=== PATIENT | male | born 1990 | race Caucasian/White ===

== ENCOUNTER 2016-05-08 08:01 | Emergency (ER) | payer MEDICAID ==
[~2016-05-08] VITALS: Ht 170.2 cm; Wt 68.2 kg
[2016-05-08 08:02] VITALS: BP 100/61
[2016-05-08] MEDS ORDERED: DEXAMETHASONE 4 MG TABLET ONE (08:43)
[2016-05-08] MEDS ORDERED: KETOROLAC 30 MG/1 ML ONE (08:43)
[2016-05-08] MEDS ORDERED: HYDR-3240 PO (08:51)
[2016-05-08] MEDS ORDERED: DEXAMETHASONE 4 MG TABLET PO ONE (09:00)
[2016-05-08] MEDS ORDERED: KETOROLAC 30 MG/1 ML IM ONE (09:00)
== END 2016-05-08 10:34 ==
LOC: ED 09:09
DX: R07.0 Pain in throat (principal); G43.909 Migraine, unspecified, not intractable, without status migrainosus; Z88.5 Allergy status to narcotic agent; Z87.891 Personal history of nicotine dependence
CPT/HCPCS: 87081; 87880; 96372; 99284; J1885

== ENCOUNTER 2017-05-08 09:33 | Emergency (ER) | payer MEDICAID ==
[~2017-05-08] VITALS: Ht 170.2 cm; Wt 71.1 kg
[~2017-05-08 09:33] MED LIST: HYDR-3240 PO
[2017-05-08 09:36] VITALS: BP 117/73
== END 2017-05-08 11:51 | disposition home or self-care (01) ==
LOC: ED 10:11
DX: J20.8 Acute bronchitis due to other specified organisms (principal); J06.9 Acute upper respiratory infection, unspecified; B97.89 Other viral agents as the cause of diseases classified elsewhere; G43.909 Migraine, unspecified, not intractable, without status migrainosus
CPT/HCPCS: 71046; 99284

== ENCOUNTER 2019-09-02 06:01 | Emergency (ER) | payer MEDICAID ==
[~2019-09-02] VITALS: Ht 172.7 cm; Wt 84.0 kg
--- NOTE | 2019-09-02 06:06 | NUR ---
FIRST PT CONTACT: PT AMBULATED BACK TO ROOM WITH A SMOOTH AND STEADY GAIT. STATES HE CAME IN TODAY DUE TO DENTAL PAIN ON LEFT LOWER JAW SIDE. PT STATES IT IS TENDER TO THE TOUCH. NO SWELLING NOTED. GROSS NEURO INTACT. PT SITTING UP IN GURNEY, APPEARS COMFORTABLE. NAD. SKIN COLOR WARM AND DRY WNL. PT PLACED ON SPO2/BP MONITORING. WCTM. MARIAA BRASHER AT BS FOR EVAL AND POC
[2019-09-02 06:16] VITALS: BP 130/68
--- NOTE | 2019-09-02 06:16 | NUR ---
Patient given discharge instructions and they have confirmed that they understand the instructions. Patient ambulatory with steady gait. PT DENIES ANY ADDITIONAL QUESTIONS, NAD, P/W/D, OT STATES HE WILL FOLLOW UP. NO BELONGINGS LEFT IN ROOM AT TIME OF DC.
== END 2019-09-02 06:18 | disposition home or self-care (01) ==
LOC: ED 06:15
DX: K08.89 Other specified disorders of teeth and supporting structures (principal)
CPT/HCPCS: 99283

== ENCOUNTER 2020-08-28 17:27 | Emergency (ER) | payer MEDICAID ==
[~2020-08-28] VITALS: Ht 172.7 cm; Wt 88.0 kg
[~2020-08-28 17:27] MED LIST changes: +HYDR-2214 PO; -HYDR-3240 PO
[2020-08-28 17:56] VITALS: BP 124/83
--- NOTE | 2020-08-28 20:14 | NUR ---
APPRAISER IRRIGATION TAX: ANASTACIO FROM [employer].
== END 2020-08-28 20:16 | disposition home or self-care (01) ==
LOC: ED 20:05
DX: K02.9 Dental caries, unspecified (principal); Z87.891 Personal history of nicotine dependence
CPT/HCPCS: 99283